=== PATIENT | male | born 1945 | race Caucasian/White ===

== ENCOUNTER 2020-08-19 11:36 | Observation (INO) | payer MEDICARE, MEDICAID ==
[~2020-08-19] VITALS: Ht 170.2 cm; Wt 83.9 kg
[2020-08-19 12:43] LABS: HEMOGLOBIN 10.3 gm/dl (14.0-17.5); RED BLOOD COUNT 3.61 M/UL (4.20-5.50); WHITE BLOOD COUNT 2.8 K/UL (4.5-11.0)
[2020-08-19 12:46] LABS: BUN/CREATININE RATIO 20 (0-10)
[2020-08-19] MEDS ORDERED: FEOSOL325 MG PO (15:24)
[2020-08-19] MEDS ORDERED: CRESTOR10 MG PO (15:24)
[2020-08-19] MEDS ORDERED: ADULT LOW DOSE81 MG PO (15:26)
[2020-08-19] MEDS ORDERED: FLOMAX 0.4 MG0.4 MG PO (15:26)
[2020-08-19] MEDS ORDERED: GLUCOTROL5 MG PO (15:27)
[2020-08-19] MEDS ORDERED: VITAMIN D250 MCG PO (15:28)
[2020-08-19] MEDS ORDERED: GLUCOPHAGE1000 MG PO (15:29)
[2020-08-19] MEDS ORDERED: NORVASC5 MG PO (15:29)
[2020-08-19] MEDS ORDERED: COREG25 MG PO (15:30)
[2020-08-19] MEDS ORDERED: DOCUSATE SODIU250 MG PO (15:31)
[2020-08-19] MEDS ORDERED: HYDROCHLOROTHIA25 MG PO (15:31)
[2020-08-19] MEDS ORDERED: ZESTRIL 40 MG T40 MG PO (15:32)
[2020-08-19] MEDS ORDERED: OMEPRAZOLE20 MG PO (15:32)
[2020-08-19] MEDS ORDERED: CLARITIN 10MG T10 MG PO (15:32)
[2020-08-19] MEDS ORDERED: WELLBUTRIN XL300 MG PO (15:33)
[2020-08-20 05:57] LABS: HEMOGLOBIN 10.4 gm/dl (14.0-17.5); RED BLOOD COUNT 3.61 M/UL (4.20-5.50)
[2020-08-20 06:29] LABS: ADENOVIRUS F 40/41 Not Detected (Negative); ASTROVIRUS Not Detected (Negative); CAMPYLOBACTER Not Detected (Negative); CLOSTRIDIUM DIFFICILE TOX A/B Not Detected (Negative); CRYPTOSPORIDIUM Not Detected (Negative); E.COLI 0157 Not Detected (Negative); ENTAMOEBA HISTOLYTICA Not Detected (Negative); ENTEROAGGREGATIVE E.COLI (EAEC Not Detected (Negative); ENTEROPATHOGENIC E.COLI (EPEC) Not Detected (Negative); ENTEROTOXIGENIC E.COLI (ETEC) Not Detected (Negative); GIARDIA LAMBLIA Not Detected (Negative); NOROVIRUS GI/GII Not Detected (Negative); PLESIOMONAS SHIGELLOIDES Not Detected (Negative); ROTOVIRUS A Not Detected (Negative); SALMONELLA Not Detected (Negative); SAPOVIRUS Not Detected (Negative); SHIG/ENTEROINVAS.ECOLI (EIEC) Not Detected (Negative); SHIGA-LIK TOX.PRO.E.COLI (STEC Not Detected (Negative); VIBRIO Not Detected (Negative); VIBRIO CHOLERAE Not Detected (Negative); YERSINIA ENTEROCOLITICA Not Detected (Negative)
[2020-08-20 06:37] LABS: WHITE BLOOD COUNT 1.8 K/UL (4.5-11.0)
[2020-08-21 04:51] LABS: HEMOGLOBIN 9.1 gm/dl (14.0-17.5); WHITE BLOOD COUNT 1.8 K/UL (4.5-11.0)
[2020-08-21 05:17] LABS: RED BLOOD COUNT 3.15 M/UL (4.20-5.50)
[2020-08-21 05:37] LABS: BUN/CREATININE RATIO 17 (0-10)
[2020-08-21 12:12] LABS: HBSAG SCREEN Negative (Negative); HEP A AB, IGM Negative (Negative); HEP B CORE AB, IGM Negative (Negative); HEP C VIRUS AB <0.1 (0.0-0.9)
[2020-08-22 05:46] LABS: HEMOGLOBIN 9.8 gm/dl (14.0-17.5); RED BLOOD COUNT 3.45 M/UL (4.20-5.50)
[2020-08-22 05:47] LABS: WHITE BLOOD COUNT 2.9 K/UL (4.5-11.0)
[2020-08-22 06:15] LABS: BUN/CREATININE RATIO 14 (0-10)
[2020-08-22 14:12] LABS: HEMATOCRIT 29.9 % (37.5-51.0)
== END 2020-08-22 11:00 | disposition home or self-care (01) ==
LOC: ER1 11:36 → MED SURG 4 14:20 → CDU 14:20 → MED SURG 4 15:30
PROVIDERS: Emergency Medicine; Internal Medicine; Internal Medicine Hematology & Oncology; Physician Assistant; ADMIT Internal Medicine
DX: R19.7 Diarrhea, unspecified (principal); D61.818 Other pancytopenia; N17.9 Acute kidney failure, unspecified; E87.1 Hypo-osmolality and hyponatremia; E87.6 Hypokalemia; E87.2 Acidosis; E11.9 Type 2 diabetes mellitus without complications; I25.10 Atherosclerotic heart disease of native coronary artery without angina pectoris; R74.01 Elevation of levels of liver transaminase levels; I10 Essential (primary) hypertension; E78.5 Hyperlipidemia, unspecified; E86.0 Dehydration; D75.89 Other specified diseases of blood and blood-forming organs; R53.1 Weakness; Z20.822 Contact with and (suspected) exposure to COVID-19; Z95.1 Presence of aortocoronary bypass graft; Z85.46 Personal history of malignant neoplasm of prostate; Z79.82 Long term (current) use of aspirin; Z79.84 Long term (current) use of oral hypoglycemic drugs; Z79.899 Other long term (current) drug therapy; Z92.3 Personal history of irradiation
CPT/HCPCS: 36415; 70450; 71045; 76705; 80048; 80053; 80074; 82550; 82553; 82607; 82728; 82747; 82962; 83540; 83550; 83615; 83874; 84484; 85025; 87507; 93005; 99285; G0378; J7030; U0002

== ENCOUNTER 2021-10-24 15:40 | Emergency (ER) | payer MEDICARE ==
[~2021-10-24 15:40] MED LIST: ADULT LOW DOSE81 MG PO; CLARITIN 10MG T10 MG PO; COREG25 MG PO; CRESTOR10 MG PO; DOCUSATE SODIU250 MG PO; FEOSOL325 MG PO; FLOMAX 0.4 MG0.4 MG PO; GLUCOPHAGE1000 MG PO; GLUCOTROL5 MG PO; HYDROCHLOROTHIA25 MG PO; NORVASC5 MG PO; OMEPRAZOLE20 MG PO; VITAMIN D250 MCG PO; WELLBUTRIN XL300 MG PO; ZESTRIL 40 MG T40 MG PO
[2021-10-24 19:09] LABS: HEMOGLOBIN 12.2 gm/dl (14.0-17.5); RED BLOOD COUNT 4.2 M/UL (4.20-5.50); WHITE BLOOD COUNT 6.9 K/UL (4.5-11.0)
== END 2021-10-24 20:30 | disposition home or self-care (01) ==
LOC: ER1 15:40
PROVIDERS: Physician Assistant
DX: U07.1 COVID-19 (principal); Z23 Encounter for immunization; E11.9 Type 2 diabetes mellitus without complications; Z79.84 Long term (current) use of oral hypoglycemic drugs; I11.9 Hypertensive heart disease without heart failure; Z87.891 Personal history of nicotine dependence; Z95.1 Presence of aortocoronary bypass graft
CPT/HCPCS: 0240U; 80053; 85025; 99284; M0222

== ENCOUNTER 2021-11-01 12:03 | Emergency (ER) | payer MEDICARE ==
[~2021-11-01 12:03] MED LIST changes: +GLIPIZIDE10 MG PO; -GLUCOTROL5 MG PO; -VITAMIN D250 MCG PO; +VITAMIN D325 MCG PO
[2021-11-01 13:02] LABS: HEMOGLOBIN 12.8 gm/dl (14.0-17.5); RED BLOOD COUNT 4.38 M/UL (4.20-5.50); WHITE BLOOD COUNT 10.1 K/UL (4.5-11.0)
[2021-11-01] MEDS ORDERED: RYBELSUS7 MG PO (15:37)
[2021-11-01] MEDS ORDERED: MONTELUKAST SOD10 MG PO (15:38)
[2021-11-01] MEDS ORDERED: HYDROCHLOROTHIA25 MG PO (16:34)
== END 2021-11-01 17:35 | disposition short-term general hospital (02) ==
LOC: ER1 12:03
PROVIDERS: Nurse Practitioner
DX: U07.1 COVID-19 (principal); E87.5 Hyperkalemia; N17.9 Acute kidney failure, unspecified; I11.9 Hypertensive heart disease without heart failure; E11.9 Type 2 diabetes mellitus without complications; Z85.46 Personal history of malignant neoplasm of prostate
CPT/HCPCS: 0240U; 71045; 80053; 81001; 82550; 82553; 82962; 84484; 85025; 93005; 96374; 96375; 99285; J2405